=== PATIENT | female | born 1975 | race Caucasian/White ===

== ENCOUNTER 2020-11-22 10:09 | Emergency (ER) | payer OTHER, BC, SELFPAY ==
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
[2020-11-22 10:39] VITALS: BP 128/82; PULSE 69; RESP 14; TEMP 37.2; O2SAT 98
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
[2020-11-22] MEDS: HYDROcodone/acetaminophen (*CRX) 5-325 MG TABLET 1 TAB PO (12:27)
== END 2020-11-22 14:32 | disposition home or self-care (01) ==
PROVIDERS: Emergency Provider Emergency Medicine; PCP Physician Assistant
DX: S16.1XXA Strain of muscle, fascia and tendon at neck level, initial encounter (principal); S39.012A Strain of muscle, fascia and tendon of lower back, initial encounter; M79.661 Pain in right lower leg; M79.662 Pain in left lower leg; I10 Essential (primary) hypertension; E03.9 Hypothyroidism, unspecified; F41.9 Anxiety disorder, unspecified; Z86.73 Personal history of transient ischemic attack (TIA), and cerebral infarction without residual deficits; M43.06 Spondylolysis, lumbar region; V49.40XA Driver injured in collision with unspecified motor vehicles in traffic accident, initial encounter
CPT/HCPCS: 72072; 72100; 72125; 73590; 99284; A9270

== ENCOUNTER 2025-01-05 09:16 | Outpatient (CLI) | payer OTHER, SELFPAY ==
--- OUTSIDE RECORDS SUMMARY | 2025-01-05 09:55 | XMS_ITS | Clinical Summary ---
Author Organization [facility] Address [address] [place] [address] Phone Care Team Providers Care Block Setter Gypsum Name Role Phone Amy Mcduffie Primary Care Provider Allergies No known active allergies Social History Tobacco Use Types Packs/Day Years Used Date Smoking Tobacco: Never Assessed Comments Unknown Sex and Gender Information Value Date Recorded Sex Assigned at Not on file Legal Sex Female 10:10 PM CDT Gender Identity Not on file Sexual Orientation Not on file Plan of Treatment Health Maintenance Due Date Last Done Comments Hepatitis C Virus (HCV) Screening 1973 TdaP Immunization 1973 Hepatitis B Immunization (1 of 3 - 19+ 3-dose series) 1992 Pap Smear 1994 Cervical Cancer Screening (CCS) 10/26/2003 HPV/Cotest 10/26/2003 Cologuard 2018 Colonoscopy 2018 Colorectal Cancer Screening 2018 Immunochemical Fecal Occult Blood 2018 Pneumococcal Immunization (5 0+ years) (1 of 1 - PCV) 10/26/2023 Zoster Immunization (1 of 2) 10/26/2023 Influenza Immunization (#1) 2024 SARS-COV-2 Immunization (3 - 2024- season) 2024 02/27/2021, 11/21/2020 Respiratory Syncytial Virus (RSV) Immunization (Adult) (1 - 1-dose 75+ series) 2048 Human Papillomavirus (HPV) Immunization Aged Out No longer eligible b ased on patient's age to complete this topic Meningococcal Immunization (ACWY) Aged Out No longer eligible b ased on patient's age to complete this topic Rotavirus Immunization Aged Out No lo nger eligible based on patient's age to complete this topic Insurance [facility] Care Teams Block Setter Gypsum Relationship Specialty Start Date End Date Amy Mcduffie PA PCP - General Family Medicine 08/24/17
--- OUTSIDE RECORDS SUMMARY | 2025-01-05 09:55 | XMS_ITS | Clinical Summary ---
Author Organization [facility] Address [address] [place] [address] Care Team Providers Care Regional Owner Operator Truck Driver Name Role Phone Amy Mcduffie Primary Care Pr ovider Allergies No known active allergies Medications levothyroxine (SYNTHROID, LEVOTHROID) 100 mcg tablet Take 100 mcg by mouth aircraft cabin cleaner before breakfast. Active PARoxetine (PAXIL) 30 mg tablet Take 30 mg by mouth every morning. Active amitriptyline (ELAVIL) 10 mg tabletIndicati ons:Migraine Prevention Take one tablet by mouth every evening. 30 tablet 1 8 Active Additional Information Patient not taking.Reported on 11/19/2020 ALPRAZolam (XANAX) 1 mg tablet alprazolam 1 mg tablet TAKE 1 TABLET BY MOUTH THREE TIMES DAILY Active ALPRAZolam (XANAX) 0.5 mg tablet alprazolam 0.5 mg tablet TK 1 T PO BID Active clobetasoL (TEMOVATE) 0.05 % cream clobetasol 0.05 % topical cream APPLY TWICE DAILY TO PSORIASIS UP TO 2 W[address]KS NEEDED Active DUL[address] (CYMBALTA) 60 mg capsule duloxetine 60 mg capsule,delayed release TAKE 1 CAPSULE BY MOUTH EVERY NIGHT AT BEDTIME Active estradioL (ESTRACE) 1 mg tablet estradiol 1 mg tablet TAKE 1 TABLET BY MOUTH EVERY DAY Active pravastatin (PRAVACHOL) 40 mg tablet pravastatin 40 mg tablet TAKE 1 TABLET BY MOUTH EVERY DAY IN THE EVENING Active prazosin (MINIPRESS) 1 mg capsule prazosin 1 mg capsule TAKE 1 CAPSULE BY MOUTH EVERY DAY AT BEDTIME Active triamcinolone (KENALOG) 0.1 % cream triamcinolone acetonide 0.1 % topical cream Active risankizumab-r zaa (SKYRIZI SUBQ) Inject under the skin Active Active Problems Problem Noted Date Diagnosed Date Chronic migraine w/o aura w/ o status migrainosus, not intractable 10/24/2017 Medication overuse headache 10/24/2017 Vasovagal syncope 10/24/2017 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 Surgical History Surgery Date Site/Laterality Comments SECTION Medical History Medical History Date Comments Izaiah's thyroiditis Family History Medical History Relation Name Comments Hypothyroidism Sister Relation Name Status Comments Sister Social History Tobacco Use Types Packs/Day Years Used Date Smoking Tobacco: Former Smokeless Tobacco: Never Personal Safety Answer Date Recorded Getting School Help Needed Not on file 05/18 Comments Unknown Sex and Gender Information Value Date Recorded Sex Assigned at Not on file 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 Gender Identity Not on file Sexual Orientation Not on file Last Filed Vital Signs Vital Sign Reading Time Taken Comments Blood Pressure 116/76 11/27/2023 2:26 PM CDT Pulse 59 11/27/2023 2:26 PM CDT Temperature 37.3 C (99.2 F) 11/19/2020 4:27 PM CDT Respiratory Rate 16 11/19/2020 4:27 PM CDT Oxygen Saturation 98% 11/19/2020 4:27 PM CDT Inhaled Oxygen Concentration - - Weight 70.2 kg (154 lb 11.2 oz) 11/27/2023 2:26 PM CDT Height 156.8 cm (5' 1.75) 11/27/2023 2:26 PM CD T Body Mass Index 28.52 11/27/2023 2:26 PM CDT Plan of Treatment Health Maintenance Due Date Last Done Comments Breast Cancer Screening-Mammogram 1973 Cervical Cancer Screening 1973 Colon Cancer Screening-Colonoscopy 1973 Depression Screening 1973 Hepatitis C Screening 1973 DTaP/Tdap/Td Vaccine (1 - Tdap) 1984 Hepatitis B Screening 10/26/1991 Regular Well Visit/Exam 18-64 10/26/1991 Covid-19 Vaccine (3 - Pfizer risk series) 03/27/2021 02/27/2021, 11/21/2020 Zoster Vaccine (1 of 2) 10/26/2023 Influenza Vaccine (#1) 2024 03/05/2016 Pneumococcal vaccine <65 Aged Out No longer eligible based on patient's age to complete this topic Insurance [facility] [employer] Address: [address] [place] [address] [employer] Address: [address] [place] [address] [facility] CHOICE PLUS [address] [employer] [facility] CHOICE PLUS Care Teams Regional Owner Operator Truck Driver Relationship Specialty Start Date End Date Amy Mcduffie PA PCP - General Physician Kit Assembler 09/28/17
--- OUTSIDE RECORDS SUMMARY | 2025-01-05 09:56 | XMS_ITS | Patient Health Record ---
Author Organization [facility] [employer] Address [address] [place] [address] Care Team Providers Care Band Singer Name Role Phone Amy Membreno Primary Care Provider John Paul Schmidt Unavailable [phone] Allergies No Known Allergies Reason For Referral No Information Medications Medication SIG (Take, Route, Frequency, Duration) Notes Start Date End Date Status ALPRAZolam 1 MG Tablet Oral By pcp 04/13/2023 Active levoFLOXacin 500 MG Tablet Oral 04/13/2023 Active buPROPion HCl ER (XL) 150 MG Tablet Extended Release 24 Hour TAKE 1 TABLET BY MOUTH ONCE DAILY IN THE MORNING; Duration: 90 Active Estradiol 2 MG Tablet 1 tablet Orally On 04/13/2023 Active DULoxetine HCl 30 MG Capsule Delayed Release Particles Take 1 capsule by mouth once daily at bedtime; Duration: 90 Active Immunizations Vaccine Route Administration Date Status Comme nts Pfizer [employer]ion[employer] Covid-19 Vac cine 2nd dose Unknown 11/21/2020 Administered Pfizer [employer]iontech Covid-19 Vac cine 2nd dose Unknown 02/27/2021 Administered Social History Tobacco Use: Social History Observation Description Date Details (start date - stop date) Former Smoker NA - NA Sex Assigned At : Social History Observation Description Sex Assigned At Female Social History Miscellaneous: Social Info Question Answer Notes Advance Care Planning Are you your own decision-maker Yes Do you have Power of Electric Crane Operator for Health or Medi roxie? Yes Do you have a power of corporate logistics manager for health? No Do you have power of corporate logistics manager for Medical ? No Tobacco Use: Social Info Question Answer Notes Tobacco Control (Standard) Tobacco use: Former smoker Additional Details Category Social Info Options Details Migrated Social History Migrated Social History Alcohol Intake: None 02/09/2020,Tobacco Years: Former smoker 04/20/2021,Smoking Status: 21 04/13/2023 Problems Problem Type SNOMED Code ICD Code Onset Dates Problem Status W/U Status Risk Notes Problem Severe recurrent major depression without psychotic features (83126559) Major depressive disorder, recurrent severe without psychotic features (F33.2) Active confirmed Problem Generalized anxiety disorder (09522921) Generalized anxiety disorder (F41.1) Active confirmed Problem Posttraumatic stress disorder (80443481) Post-traumatic stress disorder, chronic (F43.12) Active confirmed Problem 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 (790119482) 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 (E06.3) 10/25/19 18 Active confirmed Problem Vasovagal syncope (602821614) Vasovagal syncope (R55) 10/25/19 18 Active confirmed Problem Chronic migraine without aura, non-intractable (218670354616862) Chronic migraine w/o aura w/o status migrainosus, not intractable (G43.709) 10/25/19 18 Active confirmed Problem Medication overuse headache (504376691) Medication overuse headache (G44.40) 10/25/19 18 Active confirmed Vital Signs Heart Rate 78 /min 06/25/2024 Height-cm 154.94 cm 06/25/2024 Blood pressure diastolic 71 mm Hg 06/25/2024 Weight-kg 69.4 kg 06/25/2024 Height 61.00 in 06/25/2024 Blood pressure systolic 107 mm Hg 06/25/2024 Weight 153 lbs 06/25/2024 BMI 28.91 kg/m2 06/25/2024 Encounters Encounter Location Date Provider Diagnosis [facility] [employer] [address] [place] [address] 03/26/2024 John Paul Ness Major depressive disorder, recurrent severe without psychotic features F33.2 ; Generalized anxiety disorder F41.1 and Post-traumatic stress disorder, chronic F43.12 [facility] [employer] [facility] [address] [place] [address] 06/25/2024 John Paul Ness Encounter for screen ing for depression Z13.31 ; Encounter for screening for cardiovascular disorders Z13.6 ; Major depressive disorder, recurrent severe without psychotic features F33.2 ; Generalized anxiety disorder F41.1 and Post-traumatic stress disorder, chronic F43.12 [facility] [employer] [facility] [address] [facility] [address] [place] [address] 07/03/2024 John Paul Ness Major depressive disorder, recurrent severe without psychotic features F33.2 Assessments Encounter Date Diagnosis (ICD Code) Assessment Notes Treatment Notes Treatment Clinical Notes Section Notes 06/25/2024 Encounter for screening for depression (ICD-10 - Z13.31) 07/03/2024 Major depressive disorder, recurrent severe without psychotic features (ICD-10 - F33.2) 03/26/2024 Major depressive disorder, recurrent severe without psychotic features (ICD-10 - F33.2) 03/26/2024 Generalized anxiety disorder (ICD-10 - F41.1) 06/25/2024 Encounter for screening for cardiovascular disorders (ICD-10 - Z13.6) 03/26/2024 Post-traumatic stress disorder, chronic (ICD-10 - F43.12) 06/25/2024 Major depressive disorder, recurrent severe without psychotic features (ICD-10 - F33.2) 06/25/2024 Generalized anxiety disorder (ICD-10 - F41.1) 06/25/2024 Post-traumatic stress disorder, chronic (ICD-10 - F43.12) 03/26/2024 Other Major Depressive Disorder - Assessment: Patient reports significant emotional distress from a toxic work environment, leading to crying every night. They have quit their job and have an upcoming interview for a new position. Patient expresses desire to wean off medications, including bupropion, duloxetine, and Xanax, and has already weaned off one medication. Despite a high depression score today, patient notes improvement over the last week since deciding to leave their job. - Plan: - Decrease duloxetine to 30 mg. If depression worsens, return to 60 mg. - Obtain a 90-day prescription while patient still has insurance coverage. - Schedule follow-up appointment in two months to reassess mental health and medication needs. Anxiety - Assessment: Patient is currently weaning off Xanax and has experienced hot flashes at night. They previously quit cold turkey and had a breakdown, so they are now attempting a more gradual approach. - Plan: - Continue gradual weaning process for Xanax. - Monitor for signs of withdrawal or worsening anxiety. - Encourage patient to call immediately if anxiety worsens or if they experience adverse effects from medication changes. Unemployment and Insurance Concerns - Assessment: Patient has quit their job and is concerned about losing insurance coverage. They have been actively seeking employment for about a month and have faced challenges due to being overqualified. They have an interview for a new position. - Plan: - Assist patient in obtaining 90-day prescription for medications while still insured. - Encourage patient to explore options for insurance coverage during job transition. - Provide resources and support as needed. Follow-up Appointment - Plan: - Ensure appointment is scheduled in two months. - Confirm appointment with patient closer to the date. - Encourage patient to call immediately if depression or anxiety worsens or if they experience adverse effects from medication changes. 06/25/2024 Other Problem-Based Assessment and Plan Radha Frank, a patient with a history of depression and anxiety, reports significant improvement in mood and overall well-being, expressing a desire to discontinue psychotropic medications. Depression Assessment: Patient reports significant improvement in depressive symptoms. She denies current suicidal thoughts and states she no longer dwells on negative thoughts. Improvement is attributed to better job situation and family relationships, including reconciliation with her daughter. Patient expresses desire to discontinue all psychotropic medications, believing she no longer needs them. Plan: - Discontinue duloxetine 30 mg - Continue bupropion 150 mg - Gradual taper of medications planned - Follow-up in 3 months to reassess mood and medication needs - If stable at follow-up, consider further medication reduction or discontinuation - Monitor for return of depressive symptoms during taper Anxiety Assessment: Patient reports improved anxiety symptoms and has been self-tapering alprazolam (Xanax) use. Previously prescribed 3 times daily, patient reduced to twice daily, and now reports taking it once daily. Expresses desire to discontinue alprazolam completely. Plan: - Continue alprazolam taper as tolerated - Discontinue buspirone (BuSpar) - Monitor for return of anxiety symptoms during medication taper Disclaimer: This note has been transcribed using speech recognition software and serves as a reflection of the patient's visit. While efforts have been made to ensure accuracy, there may be errors, including library acquisitions technician inaccuracies and misspellings of medication names. This document should not be considered a verbatim record, and any discrepancies should be verified with the provider. Plan Of Treatment Next Appt Details Provider Name:John Paul Ness , 01/16/2025 04:30:00 PM, [address] [facility] [address] [facility] [address], [place], [address], Insurance Providers Payer Name Payer Address Payer Phone Subscriber Number Group Number Insured Name Patient Relationship to Insured Coverage Start Date Coverage End Date [facility] [address] [place] [address] [id number] RADHA SULLIVAN Self - patient is the insured 4 [facility] [address] [address] [place] [address] [id number] RADHA SULLIVAN Self - patient is the insured 5 Medical (General) History Medical History History ICD Code Problems: Chronic post-traumatic stress disorder Generalized anxiety disorder Severe recurrent major depression withou t psychotic features , Surgical History Surgery Date(Month/Year) Hysterectomy (18045) Any surgical history Hysterectomy/bladder repair (71662) section (40985534) Other 02/03/2020
[2025-01-05 10:06] LABS: Hematocrit 40.9 % (37.0-47.0); Hemoglobin 13.2 g/dL (12.0-15.0); Immature Granulocyte Percent A 0.4 % (0-0.5); Lymphocytes Absolute Auto 1.76 K/mm3 (0.9-3.2); Mean Corpuscular HGB Conc 32.3 g/dl (32-36); Mean Corpuscular Hemoglobin 30.6 pg (26-34); Mean Corpuscular Volume 94.9 fl (80-100); Nucleated Red Blood Cells Absolute Auto 0.000 K/mm3 (0.0-0.012); Nucleated Red Blood Cells Perc 0.0 % (0.0-0.2); Platelet Count Result 311 k/mm3 (150-375); Red Blood Count 4.31 M/mm3 (4.2-5.4); White Blood Count 5.3 K/mm3 (4.5-10.0)
[2025-01-05 10:27] LABS: Alanine Aminotransferase 24 U/L (6-35); Albumin Level 4.1 g/dL (3.5-5.1); Alkaline Phosphatase 48 U/L (38-126); Anion Gap 7 mmol/L (4-12); Aspartate Amino Transferase 27 U/L (14-36); Bilirubin,Total 0.3 mg/dL (0.2-1.3); Blood Urea Nitrogen 21 mg/dL (7-17); Calcium 8.9 mg/dL (8.4-10.2); Carbon Dioxide 28 mmol/L (22-30); Chloride 103 mmol/L (98-107); Cholesterol 194 mg/dL (0-200); Estimated Glomerular Filt Rate > 60; Glucose 103 mg/dL (65-110); HDL Direct 71 mg/dL; Potassium 4.6 mmol/L (3.4-5.0); Sodium 138 mmol/L (137-145); Total Protein 7.2 g/dL (6.3-8.2); Triglycerides 76 mg/dL (<150)
[2025-01-05 10:30] LABS: Hemoglobin A1C 5.4 % (<5.7)
[2025-01-05 10:41] LABS: Free T4 Free Thyroxine 1.28 ng/dL (0.78-2.19)
[2025-01-05 11:02] LABS: Thyroid Stimulating Hormone < 0.015 uIU/mL (0.465-4.680)
== END 2025-01-05 09:17 | disposition home or self-care (01) ==
LOC: ANHLAB 09:19
PROVIDERS: PCP Physician Assistant; Visit Provider Physician Assistant
DX: E03.9 Hypothyroidism, unspecified (principal); Z13.220 Encounter for screening for lipoid disorders; Z13.1 Encounter for screening for diabetes mellitus; Z79.899 Other long term (current) drug therapy
CPT/HCPCS: 36415; 80053; 80061; 83036; 84439; 84443; 85025

== ENCOUNTER 2025-01-22 11:19 | Outpatient (CLI) | payer OTHER, SELFPAY ==
--- NOTE | ~2025-01-22 | MM_ITS ---
EXAMINATION: MM screening areli BI w zahra HISTORY: Screening TECHNIQUE: Craniocaudal and mediolateral oblique 3-D tomosynthesis images were obtained and synthetic 2-D images were generated. CAD analysis was submitted and interpreted. COMPARISON: Comparison to multiple prior studies sequentially, with oldest reviewed study dated , 05/25/2009 BREAST PARENCHYMAL COMPOSITION: Not Dense: The breasts are almost entirely fatty. FINDINGS: There is no evidence of suspicious mass, calcification, or architectural distortion to suggest malignancy in either breast. IMPRESSION: 1. No mammographic evidence of malignancy. 2. Recommend routine screening mammography in one year. BI-RADS Category 1: Negative Reviewed, dictated and finalized at location B. OLL AND BENEFITS MANAGER
== END 2025-01-22 11:20 | disposition home or self-care (01) ==
PROVIDERS: PCP Physician Assistant; Visit Provider Obstetrics & Gynecology
DX: Z12.31 Encounter for screening mammogram for malignant neoplasm of breast (principal)
CPT/HCPCS: 77063; 77067

== ENCOUNTER 2025-02-24 11:46 | Outpatient (CLI) | payer OTHER, SELFPAY ==
--- OUTSIDE RECORDS SUMMARY | 2025-01-16 10:30 | XMS_ITS ---
Author Organization [facility] Screen Address [facility] [facility] [address] [place] [address] Care Team Providers Care Collar Stay Fuser Tender Name Role Phone Amy Membreno Primary Care Provider John Paul Schmidt Unavailable [phone] REASON FOR VISIT Last seen 06/25/2024 Social History Sex Assigned At : Social History Observation Description Sex Assigned At Female Encounters Encounter Location Date Provider Diagnosis [facility] [place] [address] [facility] [address] [place] [address] 01/16/2025 John Paul Schulte Plan Of Treatment No Information Progress Notes * RADHA DIAZDOB:1975 (49 yo F)Acc No.[id number]:01/16/2025 Patient: Stanislaw ANUPAM RADHA Provider: Eladia SCHULTE MD :1975 A ge:49 Y S ex:Female Date:01/16/2025 [facility] [facility] Pcp:Amy FONSECA Subjective: * Chief Complaints: * L ast seen 06/25/2024 * Active Problem List E06.3 Hypothyroidism due t o Izaiah's thyroiditis Onset Date:10/24/2017Modified On:12/26/2023W/U Status:confirmedClinical Status:active R55 Vasovagal syncope Onset Date:10/24/2017Modified On:12/26/2023W/U Status:confirmedClinical Status:active G43.709 Chronic migraine w/o aura w/o status migrainosus, not intractable Onset Date:10/24/2017Modified On:12/26/2023 Status:confirmedClinical Status:active G44.40 Medication overuse h eadache Onset Date:10/24/2017Modified On:12/26/2023 Status:confirmedClinical Status:active 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
--- OUTSIDE RECORDS SUMMARY | 2025-02-24 12:03 | XMS_ITS | Patient Health Record ---
Author Organization [facility] Address [address] [place] [address] Care Team Providers Care Hydrometer Tester Name Role Phone Amy Membreno Primary Care Provider John Paul Schmidt Unavailable [phone] Allergies No Known Allergies Reason For Referral [...] decision-maker Yes Do you have Power of Tennis Court Attendant for Health or Medi roxie? Yes Do you have a power of employment law attorney for health? No Do you have power of employment law attorney for Medical ? 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 (E06.3) 10/25/19 18 Active confirmed Problem Vasovagal syncope (409916222) Vasovagal syncope (R55) 10/25/19 18 Active confirmed Problem Chronic migraine without aura, non-intractable (544816946472048) Chronic migraine w/o aura w/o status migrainosus, not intractable (G43.709) 10/25/19 18 Active confirmed Problem Medication overuse headache (117836556) Medication overuse headache (G44.40) 10/25/19 18 Active confirmed Vital Signs Heart Rate 78 /min 06/25/2024 Height-cm 154.94 cm 06/25/2024 Blood pressure diastolic 71 mm Hg 06/25/2024 Weight-kg 69.4 kg 06/25/2024 Height 61.00 in 06/25/2024 Blood pressure systolic 107 mm Hg 06/25/2024 Weight 153 lbs 06/25/2024 BMI 28.91 kg/m2 06/25/2024 Encounters Encounter Location Date Provider Diagnosis [facility] [employer] [address] [place] [address] 03/26/2024 John Paul Ness Major depressive disorder, recurrent severe without psychotic features F33.2 ; Generalized anxiety disorder F41.1 and Post-traumatic stress disorder, chronic F43.12 [facility] [employer] [facility] [address] [place] [address] 06/25/2024 John Paul Ness Encounter for screen ing for depression Z13.31 ; Encounter for screening for cardiovascular disorders Z13.6 ; Major depressive disorder, recurrent severe without psychotic features F33.2 ; Generalized anxiety disorder F41.1 and Post-traumatic stress disorder, chronic F43.12 [facility] [employer] [facility] [address] [facility] [address] [place] [address] 07/03/2024 John Paul Ness Major depressive disorder, [...] ensure accuracy, there may be errors, including photostatic copy maker inaccuracies and misspellings of medication names. This document should not be considered a verbatim record, and any discrepancies should be verified with the provider. Plan Of Treatment No Information Insurance Providers Payer Name Payer Address Payer Phone Subscriber Number Group Number Insured Name Patient Relationship to Insured Coverage Start Date Coverage End Date [facility] [address] [place] [phone] [id number] RADHA SULLIVAN Self - patient is the insured 4 [facility] [address] [address] [place] [address] [id number] RADHA SULLIVAN Self - patient is the insured 5 Medical (General) History Medical History History ICD Code Problems: Chronic post-traumatic stress disorder Generalized anxiety disorder Severe recurrent major depression withou t psychotic features , Surgical History Surgery Date(Month/Year) Hysterectomy (23143) Any surgical history Hysterectomy/bladder repair (31571) section (46345449) Other 02/03/2020
--- OUTSIDE RECORDS SUMMARY | 2025-02-24 12:03 | XMS_ITS | Clinical Summary ---
Author Organization [facility] Address [address] [place] [address] Care Team Providers Care Radio/Tv Technician Name Role Phone Amy Mcduffie Primary Care Pr ovider Allergies No known active allergies Medications levothyroxine (SYNTHROID, LEVOTHROID) 100 mcg tablet Take 100 mcg by mouth clinic cma before breakfast. 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 Gender Identity Not on file Sexual Orientation [...] patient's age to complete this topic Insurance [facility] ACCESS Member Subscriber Plan / Payer (Ef fective 2017-Present) Name:Shavon Frank Relation to Subscriber:Self Name:Shavon Frank Payer ID:[id number] (NAIC) Group ID:[id number] Type:[employer] Address: [address] [place] [address] [employer] [facility] CHOICE PLUS [address] [facility] CHOICE PLUS Care Teams Radio/Tv Technician Relationship Specialty Start Date End Date Amy Mcduffie PA PCP - General Physician Drafter (Cad) Electronic 09/28/17
--- OUTSIDE RECORDS SUMMARY | 2025-02-24 12:03 | XMS_ITS | Data Portability ---
Author Organization [facility] [employer], Main Office Address [address] [place] [address] Assessment No assessment recorded. Plan of Treatment Reminders Order Date Submit Date Provider Last Modified By Organization Details Last Modified Time Details Appointments None recorded . Lab TSH + free T4, serum 023 10/21/19 23 [email or web address] [employer] [facility], [address], [place], [address], 4 09:34:52 CBC w/ auto diff 023 10/21/19 23 [email or web address] [facility], [address], [place], [address], 4 09:34:51 CMP, serum or plasma 023 10/21/19 23 [email or web address], [address], [place], [address], 4 09:34:52 lipid panel, serum 023 10/21/19 23 [email or web address] [employer] [facility], [address], [place], [address], 4 09:34:51 Referral None recorded . Procedures None recorded . Surgeries None recorded . Imaging None recorded . Medication Orders None recorded . Patient TargetsNo targets recorded. Patient InstructionsNo instructions recorded. Reason for Referral None Reported. Results Created Date Observation Date Name Description Value Unit Range Abnormal Flag Note LastModifiedBy Organization Detail LastModifiedTime 10/12/19 21 09/15/2020 MAMMO , scree sarah, digit al, bilat eral No observ ation record ed. [id number] [facility] [address], [place], [address], 05/03/2022 03:05:03 12/09/19 21 11/22/2020 CT, cervi roxie spine , w/o contr ast No observ ation record ed. [id number] [facility] (Imaging) [address], [place], [address], 05/03/2022 03:05:03 Result Notes None recorded. 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 Procedures Surgical History Date Name Laterality Status Provider Name and Address Organization Details Recorded Time 02/22/20 19 Hysterectomy completed Not Available [facility] 023 02:44:04 02/22/20 19 repair of urinary stress incontinence completed Not Available [facility] 05/03/2022 02:44:04 03/05/19 16 other completed Not Available [facility] 3 02:44:04 03/05/19 03 section completed Not Available [facility] 03/2022 02:44:04 03/05/18 94 section completed Not Available [facility] 03/2022 02:44:04 Imaging Results None recorded. Procedure Notes None recorded. Medical Equipment None Reported. Allergies Allergen ID Allergen Name Allergen Category Reaction Reaction Severity Criticality Documentation Date Start Date Code Code System Note Provider Name and Address Organization Details Recorded Time 4902 rosuvasta tin medicatio n itching Not available Not available 05/03/2022 93283 2 RxNorm Not Available [facility] 3 03:04:13 Medications Name Sig Start Date Stop Date Status Note LastModified by Organization Details LastModified Time cyclobenzap rine 10 mg tablet TAKE 1 TABLET BY MOUTH AT BEDTIME NEEDED FOR PAIN 05/13 completed Not Available Not Available Not Available amoxicillin 500 mg capsule TK TWO CS PO D 07/03 completed Not Available Not Available Not Available buspirone 5 mg tablet TAKE 1 TABLET BY MOUTH THREE TIMES DAILY active Not Available Not Available No t Available paroxetine 10 mg tablet 08/23 completed Not Available Not Available Not Available pravastatin 40 mg tablet TAKE 1 TABLET BY MOUTH EVERY DAY IN THE EVENING 10/20 completed Not Available Not Available Not Available alprazolam 1 mg tablet TAKE 1 TABLET BY MOUTH THREE TIMES DAILY NEEDED active Not Available Not Available No t Available hydrocodone 5 mg-acetamin ophen 325 mg tablet TAKE 1 TABLET BY MOUTH EVERY 4 HOURS NEEDED 10/19 completed Not Available Not Available Not Available prazosin 1 mg capsule TAKE 1 CAPSULE BY MOUTH EVERY DAY AT BEDTIME 10/20 completed Not Available Not Available Not Available fluconazole 200 mg tablet TAKE 1 TABLET BY MOUTH 1 TIME A WEEK 05/12 completed Not Available Not Available Not Available meloxicam 15 mg tablet TAKE 1 TABLET BY MOUTH ONCE DAILY NEEDED 11/25 completed Not Available Not Available Not Available clobetasol 0.05 % topical cream APPLY TWICE DAILY TO PSORIASIS UP TO 2 WEEKS NEEDED active Not Available Not Available No t Available triamcinolo ne acetonide 0.1 % topical cream 10/20 completed Not Available Not Available Not Available levothyroxi ne 100 mcg tablet TAKE 1 TABLET BY MOUTH ONCE DAILY IN THE MORNING active Not Available Not Available No t Available oxycodone-a cetaminophe n 5 mg-325 mg tablet 05/13 completed Not Available Not Available Not Available alprazolam 0.5 mg tablet TK 1 T PO BID active Not Available Not Available No t Available alprazolam 0.25 mg tablet TAKE 1 TABLET BY MOUTH TWICE DAILY NEEDED 05/13 completed Not Available Not Available Not Available estradiol 1 mg tablet TAKE 1 TABLET BY MOUTH EVERY DAY active Not Available Not Available No t Available oxycodone-a cetaminophe n 10 mg-325 mg tablet 05/13 completed Not Available Not Available Not Available amitriptyli ne 10 mg tablet Take 1 tablet every day by oral route. 11/25 completed Not Available Not Available Not Available paroxetine 30 mg tablet TAKE 1 TABLET BY MOUTH EVERY DAY IN THE MORNING 10/20 completed Not Available Not Available Not Available paroxetine 20 mg tablet Take 1 tablet every day by oral route. 07/04 completed Not Available Not Available Not Available triamcinolo ne acetonide 0.1 % topical ointment APPLY THIN LAYER EXTERNALL Y TO THE AFFECTED AREA TWICE DAILY 05/12 completed Not Available Not Available Not Available pravastatin 20 mg tablet TAKE 1 TABLET BY MOUTH ONCE DAILY IN THE EVENING active Not Available Not Available No t Available levofloxaci n 500 mg tablet TAKE 1 TABLET BY MOUTH DAILY FOR 7 DAYS 10/20 completed Not Available Not Available Not Available paroxetine 40 mg tablet TAKE 1 TABLET BY MOUTH EVERY DAY 05/12 completed Not Available Not Available Not Available naproxen 500 mg tablet TAKE 1 TABLET BY MOUTH TWICE DAILY NEEDED FOR PAIN 05/13 completed Not Available Not Available Not Available escitalopra m 10 mg tablet TAKE 1/2 (ONE-HALF ) TABLET BY MOUTH ONCE DAILY IN THE MORNING FOR 7 DAYS; THEN TAKE 1 TABLET ONCE DAILY IN THE MORNING active Not Available Not Available No t Available rosuvastati n 10 mg tablet Take 1 tablet every day by oral route in the evening. 05/13 completed Not Available Not Available Not Available nitrofurant oin monohydrate /macrocryst als 100 mg capsule TAKE 1 CAPSULE BY MOUTH TWICE DAILY FOR 5 DAYS 10/19 completed Not Available Not Available Not Available duloxetine 30 mg capsule,del ayed release TAKE 1 CAPSULE BY MOUTH ONCE DAILY FOR 7 DAYS 10/20 completed Not Available Not Available Not Available duloxetine 60 mg capsule,del ayed release TAKE 1 CAPSULE BY MOUTH ONCE DAILY active Not Available Not Available No t Available multivitami n Takes daily 10/20 completed Not Available Not Available Not Available Cimzia 400 mg/2 mL (200 mg/mL x 2) subcutaneou s syringe kit 10/20 completed Not Available Not Available Not Available Sudafed PE Sinus-Aller gy Takes one daily in the morning 10/20 completed Not Available Not Available Not Available vilazodone 40 mg tablet TAKE 1 TABLET BY MOUTH EVERY DAY IN THE EVENING 10/20 completed Not Available Not Available Not Available Vitals Date Recorded Body mass index (BMI) Body height Oxygen saturation Heart rate Respiratory rate Body temperature Body weight Systolic And Diastolic Provider Name and Address Organization Details Last Updated DateTime 1 28 kg/m2 156.21 cm 98 % 81 /min 16 /min 98.1 [degF] 94802.0 1 g 120/80 mm[Hg] Not Available [facility] 3 02:48:17 Date Recorded Body mass index (BMI) Body height Oxygen saturation Heart rate Respiratory rate Body temperature Body weight Systolic And Diastolic Provider Name and Address Organization Details Last Updated DateTime 2 29.4 kg/m2 156.21 cm 98 % 78 /min 16 /min 98 [degF] 89407.5 9 g 118/76 mm[Hg] Not Available [facility] 3 02:48:17 Date Recorded Body height Body temperature Body mass index (BMI) Body weight Respiratory rate Oxygen saturation Heart rate Systolic And Diastolic Provider Name and Address Organization Details Last Updated DateTime 3 156.21 cm 97.2 [degF] 29.9 kg/m2 25664.3 7 g 16 /min 97 % 80 /min 122/80 mm[Hg] LUIS A Irvin [place] [facility] 3 15:14:17 Social History Question Answer Notes LastModified by Organizat ion Details LastModified Time Tobacco Smoking Status Current Every Day Smoker Not Available [facility] 05/03/2022 02:40:00 What Is Your Level Of Caffeine Consumption? Moderate [id number] Information not available 05/03/2022 How Much Tobacco Do You Chew? None [id number].[id number] Information not available 05/03/2022 In The 14 Days Before Symptom Onset, Have You Had Close Contact With A Laboratory-confirm ed COVID-19 While That Case Was Ill? No MIGRATION.[id number] Information not available 05/03/2022 In The 14 Days Before Symptom Onset, Have You Had Close Contact With A Person Who Is Under Investigation For COVID-19 While That Person Was Ill? No MIGRATION.[id number] 5608 Information not available 05/03/2022 What Type Of Diet Are You Following? REGULAR [id number].[id number] Information not available 05/03/2022 Which Illicit Or Recreational Drugs Have You Used? None MIGRATION.140574 8690 Information not available 05/03/2022 Have There Been Any Changes To Your Family Or Social Situation? No MIGRATION.[id number] 6899 Information not available 05/03/2022 Are There Any Guns Present In Your Home? Yes MIGRATION.232817 2568 Information not available 05/03/2022 Do You Use Insect Repellent Routinely? No MIGRATION.502798 9524 Information not available 05/03/2022 What Is Your Relationship Status? MIGRATION.059711 7701 Information not available 05/03/2022 Do You Use Your Seat Belt Or Car Seat Routinely? Yes MIGRATION.620720 7047 Information not available 05/03/2022 Do You Have Smoke And Carbon Monoxide Detectors In Your Home? Yes MIGRATION.324921 8104 Information not available 05/03/2022 At What Age Did You Start Smoking Tobacco? 13 MIGRATION.482566 4184 Information not available 05/03/2022 How Much Tobacco Do You Smoke? 0.25 PPD MIGRATION.237258 8232 Information not available 05/03/2022 Do You Use Sunscreen Routinely? Yes MIGRATION.218706 5428 Information not available 05/03/2022 Have You Recently Traveled Abroad? No MIGRATION.862218 6347 Information not available 05/03/2022 Do You Have Any Dietary Restrictions? No MIGRATION.088211 1750 Information not available 05/03/2022 Sex: Unknown Functional Status Question Answer Note LastModified by Organizat ion Details LastModified Time Do you use any illicit or recreational drugs? No MIGRATION.942487 0335 Information not available 05/03/2022 Do you or have you ever used any other forms of tobacco or nicotine? No MIGRATION.998643 2168 Information not available 05/03/2022 What is your level of alcohol consumption? None MIGRATION.038516 1118 Information not available 05/03/2022 Do you or have you ever used smokeless tobacco? Never used smokeless tobacco MIGRATION.242418 8138 Information not available 05/03/2022 Are you currently employed? 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 Never used electronic cigarettes MIGRATION.782693 7980 Information not available 05/03/2022 What is your exercise level? None MIGRATION.878189 2692 Information not available 05/03/2022 Mental Status None recorded. Family History Relationship Description Onset Age of this Age Resolved Age Notes LastModified by Organization Details LastModified Time Mother Obese [id number] Not available 05/03/2022 02:44:11 Son Autistic disorder [id number] Not available 05/03/2022 02:44:11 Medical History Condition Response NERVE DISEASE N BLINDNESS N RHEUMATIC FEVER N KIDNEY STONES N BLADDER PROBLEMS N OTHER # 1 N POLIO N LUNG DISEASE/DISORDER N RADIATION / CHEMOTHERAPY N COPD N Other # 2 N BLOOD DISEASES N SURGERY N EAR OR HEARING PROBLEMS N MUMPS N BOWEL PROBLEMS N DEPRESSION (INCLUDING POST ) Y STROKE/TIA Y ULCERS N BENIGN PROSTATIC HYPERPLASIA N MEASLES N MYOCARDIAL INFARCTION N OBESITY N GERD/NAUSEA N ANEURYSM N URINARY/BLADDER/KIDNEY PROBLEMS N INPATIENT PSYCH CARE N CORONARY ARTERY DISEASE (CAD) N ADDICTION CONCERNS N Impotence N ENDOMETRIOSIS N USE OF BLOOD THINNERS N SKIN PROBLEMS N GASTROINTESTINAL DISORDER N PERIPHERAL VASCULAR DISEASE N MUSCLE,JOINT OR BONE PROBLEMS N GASTROINTESTINAL BLEEDING N BLOOD CLOTS N ASTHMA Y CATARACTS N ERECTILE DYSFUNCTION N VARICOSITIES N GI PROBLEMS N Low Testosterone N INFERTILITY N AIDS/HIV N LIVER DISEASE N MALE HYPOGONADISM N HYPERTENSION N Deficiency N ANXIETY DISORDER Y BLOOD TRANSFUSION N ANEMIA/BLOOD DISORDER N CHRONIC EAR INFECTIONS N BRONCHITIS N TUBERCULOSIS N GLAUCOMA N FOOT PROBLEM N DIVERTICULITIS N SLEEP APNEA N CHICKENPOX N INFECTIOUS DISEASE N PROSTATE N HEART ARRHYTHMIA N INSOMNIA N HIGH CHOLESTEROL / HYPERLIPIDEMIA N EYE PROBLEMS Y HYPERTHYROIDISM N NEUROLOGICAL PROBLEMS N EDEMA N CHRONIC PAIN SYNDROME N HYPOTHYROIDISM N CONSTIPATION N CAROTID BLOCKAGE N BACK / NECK PROBLEMS Y HAVE YOU BEEN HOSPITALIZED OR SEEN IN [facility] IN THE PAST YEAR ? N ATHEROSCLEROSIS N BREAST PROBLEMS N DIALYSIS N ECZEMA N OSTEOPOROSIS N ARTHRITIS N NO SIGNIFICANT PAST MEDICAL HISTORY N APPENDICITIS N DIABETES, TYPE N BAD TEETH N ENT N HEARTBURN / REFLUX N AUTISM SPECTRUM DISORDER (ASD) N HEPATITIS / LIVER DISEASE N PULMONARY DISEASE N GOUT N SLEEP DISORDER N ALZHEIMER'S DISEASE N Brain Problems N DEMENTIA N HERPES N SEIZURES/EPILEPSY N HEADACHES/MIGRAINES Y VASCULAR DISEASE N PACEMAKER N Blood Disorder N DIZZINESS N HEART DISEASE/HEART PROBLEMS N KIDNEY DISEASE N MULTIPLE SCLEROSIS N CANCER: SPECIFY N CARDIAC ARRHYTHMIA N ANESTHESIA COMPLICATIONS N ATRIAL FIBRILLATION N Gall Stones N PULMONARY EMBOLISM N AUTOIMMUNE DISEASE N Gynecological History Statement/Question Response Menses Monthly N How many live births 3 Abnormal Pap Y Date of Last Pap 02/02/2019 Date of Last Mammogram 04/02/2019 Current Control Method Hysterectom y Sexually Active? N Obstetrics History GPAL:G 3 P 0 0 0 3 Type Value Living 3 Total 3 Immunizations Vaccine Type Date Status Note Provider Nam e and Address Organization Details Recorded Time Influenza, split virus, quadrivalent, preservative 7 completed Not Available [facility] 05/03/2022 03:03:59 Past Encounters Encounter ID Performer Location Encounter Start Date Encounter Closed Date Diagnosis/Indication Diagnosis SNOMED-CT Code Diagnosis ICD10 Code Diagnosis IMO Codes Diagnosis Note [id number] RAYMUNDO Carrion [facility] [place] [address] [place] [address] 05/17/2020 00:00:00 05/31/2020 23:38:10 [id number] Guillermo Boyd MD [facility] Internal [facility] [place] [address] [place] [address] 08/23/2021 00:00:00 08/31/2021 01:10:35 [id number] RAYMUNDO Carrion [facility] Internal [facility] [place] [address] [place] [address] 10/20/2022 15:06:28 10/20/2022 15:58:20 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 pt has declined medication prior. Mixed anxi ety and depressive disorder 080761107 F41.8 pt is on lexapro 10mg daily and buspar 5mg tid from specialist . Long-term drug therapy 797139985 Z79.899 CBC and CMP due Health Concerns Section Related Observation LastModified by Organization Detai ls LastModified Time None Recorded Concern Status LastModified by Organization Details LastModified Time None Recorded Advance Directives Directive None Recorded Payers Insurance Date Sequence Insurance Name Policy Number Policy Henao Covered Member ID Henao Member ID Guarantor Name 10/20/2022 1 *SELF PAY* Ke lly Arlyn Monika 10/20/2022 1 [place] [id number]ams Monika [id number] Shavon Stoddard Monika 10/20/2022 1 [facility] [id number] Guillermo Monika [id number] Shavon Arlyn Frank Notes Date Note Type Note Provider Name and Address Organization Details Recorded Time 10/21/19 23 text/htm l Anxiety/DepressionReported by PatientHPIFor severity, patient reportsinterference with household activitiesandinterference with workbut reportsdenies suicidal ideations,able to maintain relationships, anddoes not interfere with activities of daily living. For context, patient reportsmajor life stressorsandtrouble at work. For duration, patient reportssymptoms lasting over 2 weeks. For onset/timing, patient reportsstill present. For associated symptoms, patient reportsdenies homicidal ideations,no significant weight gain,no significant weight loss,no visual/auditory hallucinations,no delusions, andno shortness of breath. For quality, (doesnt matter time of day.). HyperlipidemiaReported by PatientHPIFor duration, patient reportschronic. For compliance, patient reportsdoes not exercisebut reportscompliantandcompliant with diet. For control, patient reportsusually well controlled. For complications, patient reportsno coronary artery disease,no peripheral artery disease, andno cardiovascular disease. HypothyroidismReported by PatientHPIFor exercise, patient reportsno exercise. For quality, patient reportsnot changing. For duration, patient reportsconstant. For onset/timing, patient reportsstill present. For context/risk, patient reportsnormal thyroid levels,no history of head or neck radiation during childhood,no history of thyroid disease,no history of hypothyroidism,no history of hyperthyroidism, andno excess iron exposure. For modifying factors, patient reportsmedication. For associated symptoms, patient reportsno cold intolerance,no heat intolerance,no weight loss,no weight gain,no double vision,no dry eyes,no hoarseness,no difficulty swallowing,no neck masses,no deepening of the voice,no fast heart rate,no increased blood pressure,no palpitations,no chest pain,no chest tightess or pressure,no constipation,no diarrhea,no vomiting,no decreased appetite,no loose stools,no irregular menstrual periods,no excessive sweating,no joint pain,no numbness,no tingling of the hands or feet,no dry skin,no tremor,no nervousness,no anxiety,no depression,no fatigue,no sleep difficulties,no skin changes, andno hair changes. RAYMUNDO Carrion [address] [place] [address] [address], [place], [address], [place] [facility] 11/02/2022 17:38:36 OBGyn Episode No OBEpisode recorded.
--- OUTSIDE RECORDS SUMMARY | 2025-02-24 12:03 | XMS_ITS | Clinical Summary ---
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
--- OUTSIDE RECORDS SUMMARY | 2025-02-24 12:03 | XMS_ITS | Data Portability ---
Author Organization [facility] Address [address] [place] [address] Care Team Providers Care Flare Man Name Role Phone AMY DANIELS Primary Care Provider Unavailab le Assessment Encounter Date Assessment Date Assessment LastModified by Organization Details LastModified Time 11/15/2023 11/15/2023 Pap smear /WWE due with dr. liu jerome. He orders mammogram too. [email or web address] Not available 11/15/2023 15:36:03 Plan of Treatment Reminders Order Date Submit Date Provider Last Modified By Organization Details Last Modified Time Details Appointments ANY 15 2026 04:30P M RAYMUNDO Carrion Not available Not available Not available Lab CMP, serum or plasma 2023 024 [facility], [address], [place], [address], 12/16/2023 07:36:30 CBC w/ auto diff 2023 024 MEL[facility], [address], [place], [address], 12/16/2023 07:36:32 lipid panel, serum 2023 024 MELBA [facility], [address], [place], [address], 12/16/2023 07:36:28 HbA1c (hemoglob in A1c), blood 2023 024 MELBA [facility], [address], [place], [address], 12/16/2023 07:36:31 TSH + free T4, serum 2023 024 [facility], [address], [place], [address], 12/16/2023 07:36:29 Referral orthopedi c surgeon referral [email or web address] [facility], [address], [place], [address], 12/13/2023 12:25:11 Procedures None recorded. Surgeries None recorded. Imaging XR, ankle + foot 2023 024 [facility], [address], [place], [address], 11/18/2023 23:05:01 Medication Orders None recorded. Patient TargetsNo targets recorded. Patient InstructionsNo instructions recorded. Reason for Referral Orthopedic Surgeon Referral for Injury of right ankle Referring Physician: Amy Dnaiels, Internal Medicine, Encounter Date: 11/15/2023 Results Created Date Observation Date Name Description Value Unit Range Abnormal Flag Note LastModifiedBy Organization Detail LastModifiedTime 12/15/1912/16/2023 LIPID PANEL W/ CHOL/ HDL RATIO cholesterol, total 257 mg/dL 100-19 9 above high normal Not Available [facility] [address] [facility], [place], [address], 12/16/2023 07:36:28 12/15/1912/16/2023 LIPID PANEL W/ CHOL/ HDL RATIO triglyceride s 128 mg/dL 0-149 Not Available [facility] [address] [facility] [address] [facility], [place], [address], 12/16/2023 07:36:28 12/15/1912/16/2023 LIPID PANEL W/ CHOL/ HDL RATIO HDL cholesterol 64 mg/dL >39 Not Available [facility] [address] [place], [address], 12/16/2023 07:36:28 12/15/19 24 12/16/2023 LIPID PANEL W/ CHOL/ HDL RATIO VLDL cholesterol roxie 23 mg/dL 5-40 Not Available [facility] [address] [place], [address], 12/16/2023 07:36:28 12/15/19 24 12/16/2023 LIPID PANEL W/ CHOL/ HDL RATIO LDL chol calc ([facility]) 170 mg/dL 0-99 above high normal Not Available [facility] [address] [place], [address], 12/16/2023 07:36:28 12/15/19 24 12/16/2023 LIPID PANEL W/ CHOL/ HDL RATIO T. chol/HDL ratio 4.0 ratio 0.0-4. 4 T. Chol/ HDL Ratio Men Women 1/2 Avg.R isk 3.4 3.3 Avg.R isk 5.0 4.4 2X Avg.R isk 9.6 7.1 3X Avg.R isk 23.4 11.0 Not Available [facility] [address] [place], [address], 12/16/2023 07:36:28 12/15/19 24 12/16/2023 TSH+F REE T4 TSH 0.031 uIU/m L 0.450- 4.500 below low normal Not Available [facility] [address] [place], [address], 12/16/2023 07:36:29 12/15/19 24 12/16/2023 TSH+F REE T4 T4,free(dire ct) 1.33 NG/dL 0.82-1 .77 Not Available [facility] [address] [place], [address], 12/16/2023 07:36:29 12/15/19 24 12/16/2023 COMP. METAB OLIC PANEL (14) glucose 100 mg/dL 70-99 above high normal Not Available [facility] [address] [place], [address], 12/16/2023 07:36:30 12/15/19 24 12/16/2023 COMP. METAB OLIC PANEL (14) BUN 14 mg/dL 6-24 Not Available [facility] [address] [place], [address], 12/16/2023 07:36:30 12/15/1912/16/2023 COMP. METAB OLIC PANEL (14) creatinine 1.01 mg/dL 0.57-1 .00 above high normal Not Available [facility] [address] [place], [address], 12/16/2023 07:36:30 12/15/19 24 12/16/2023 COMP. METAB OLIC PANEL (14) eGFR 68 mL/mi n/1.7 3 >59 Not Available [facility] [address] [place], [address], 12/16/2023 07:36:30 12/15/19 24 12/16/2023 COMP. METAB OLIC PANEL (14) BUN/creatini ne ratio 14 9-23 Not Available [facility] [address] [place], [address], 12/16/2023 07:36:30 12/15/19 24 12/16/2023 COMP. METAB OLIC PANEL (14) sodium 137 mmol/ L 134-14 4 Not Available [facility] [address] [place], [address], 12/16/2023 07:36:30 12/15/19 24 12/16/2023 COMP. METAB OLIC PANEL (14) potassium 4.7 mmol/ L 3.5-5. 2 Not Available [facility] [address] [facility] [place], [address], 12/16/2023 07:36:30 12/15/19 24 12/16/2023 COMP. METAB OLIC PANEL (14) chloride 100 mmol/ L 96-106 Not Available [facility] [address] [facility] [place], [address], 12/16/2023 07:36:30 12/15/19 24 12/16/2023 COMP. METAB OLIC PANEL (14) carbon dioxide, total 25 mmol/ L 20-29 Not Available [facility] [address] [facility] [address] [facility], [place], [address], 12/16/2023 07:36:30 12/15/19 24 12/16/2023 COMP. METAB OLIC PANEL (14) calcium 9.8 mg/dL 8.7-10 .2 Not Available [facility] [address] [place], [address], 12/16/2023 07:36:30 12/15/19 24 12/16/2023 COMP. METAB OLIC PANEL (14) protein, total 7.1 g/dL 6.0-8. 5 Not Available [facility] [address] [place], [address], 12/16/2023 07:36:30 12/15/19 24 12/16/2023 COMP. METAB OLIC PANEL (14) albumin 4.4 g/dL 3.9-4. 9 Not Available [facility] [address] [place], [address], 12/16/2023 07:36:30 12/15/19 24 12/16/2023 COMP. METAB OLIC PANEL (14) globulin, total 2.7 g/dL 1.5-4. 5 Not Available [facility] [address] [facility], [place], [address], 12/16/2023 07:36:30 12/15/19 24 12/16/2023 COMP. METAB OLIC PANEL (14) bilirubin, total 0.2 mg/dL 0.0-1. 2 Not Available [facility] [address] [place], [address], 12/16/2023 07:36:30 12/15/19 24 12/16/2023 COMP. METAB OLIC PANEL (14) alkaline phosphatase 63 IU/L 44-121 Not Available [facility] [address] [facility], [place], [address], 12/16/2023 07:36:30 12/15/19 24 12/16/2023 COMP. METAB OLIC PANEL (14) AST (SGOT) 17 IU/L 0-40 Not Available [facility] [address] [facility], [place], [address], 12/16/2023 07:36:30 12/15/1912/16/2023 COMP. METAB OLIC PANEL (14) ALT (SGPT) 15 IU/L 0-32 Not Available [facility] [address] [place], [address], 12/16/2023 07:36:30 12/15/1912/16/2023 HEMOG LOBIN A1C hemoglobin A1C 5.9 % 4.8-5. 6 above high normal Predi abete s: 5.7 - 6.4 Diabe jennifer: >6.4 Glyce saniya contr ol for adult s with diabe jennifer: <7.0 Not Available [facility] [address] [facility], [place], [address], 12/16/2023 07:36:31 12/15/19 24 12/16/2023 CBC WITH DIFFE RENTI AL/PL ATELE T WBC 5.2 x10e3 /uL 3.4-10 .8 Not Available [facility] [address] [facility] [address] [facility], [place], [address], 12/16/2023 07:36:32 12/15/1912/16/2023 CBC WITH DIFFE RENTI AL/PL ATELE T RBC 4.56 x10e6 /uL 3.77-5 .28 Not Available [facility] [address] [facility], [place], [address], 12/16/2023 07:36:32 12/15/1912/16/2023 CBC WITH DIFFE RENTI AL/PL ATELE T hemoglobin 14.2 g/dL 11.1-1 5.9 Not Available [facility] [address] [facility], [place], [address], 12/16/2023 07:36:32 12/15/1912/16/2023 CBC WITH DIFFE RENTI AL/PL ATELE T hematocrit 43.3 % 34.0-4 6.6 Not Available [facility] [address] [facility], [place], [address], 12/16/2023 07:36:32 12/15/1912/16/2023 CBC WITH DIFFE RENTI AL/PL ATELE T MCV 95 fL 79-97 Not Available [facility] [address] [place], [address], 12/16/2023 07:36:32 12/15/1912/16/2023 CBC WITH DIFFE RENTI AL/PL ATELE T MCH 31.1 pg 26.6-3 3.0 Not Available [facility] [address] [facility], [place], [address], 12/16/2023 07:36:32 12/15/1912/16/2023 CBC WITH DIFFE RENTI AL/PL ATELE T MCHC 32.8 g/dL 31.5-3 5.7 Not Available [facility] [address] [facility], [place], [address], 12/16/2023 07:36:32 12/15/19 24 12/16/2023 CBC WITH DIFFE RENTI AL/PL ATELE T RDW 11.8 % 11.7-1 5.4 Not Available [facility] [address] [facility], [place], [address], 12/16/2023 07:36:32 12/15/1912/16/2023 CBC WITH DIFFE RENTI AL/PL ATELE T platelets 329 x10e3 /uL 150-45 0 Not Available [facility] [address] [facility], [place], [address], 12/16/2023 07:36:32 12/15/19 24 12/16/2023 CBC WITH DIFFE RENTI AL/PL ATELE T neutrophils 50 % notest ab. Not Available [facility] [address] [facility] [address] [facility], [place], [address], 12/16/2023 07:36:32 12/15/19 24 12/16/2023 CBC WITH DIFFE RENTI AL/PL ATELE T lymphs 36 % notest ab. Not Available [facility] [address] [facility] [address] [facility], [place], [address], 12/16/2023 07:36:32 12/15/19 24 12/16/2023 CBC WITH DIFFE RENTI AL/PL ATELE T monocytes 9 % notest ab. Not Available [facility] [address] [facility], [place], [address], 12/16/2023 07:36:32 12/15/19 24 12/16/2023 CBC WITH DIFFE RENTI AL/PL ATELE T eos 4 % notest ab. Not Available [facility] [address] [facility], [place], [address], 12/16/2023 07:36:32 12/15/1912/16/2023 CBC WITH DIFFE RENTI AL/PL ATELE T basos 1 % notest ab. Not Available [facility] [address] [facility], [place], [address], 12/16/2023 07:36:32 12/15/1912/16/2023 CBC WITH DIFFE RENTI AL/PL ATELE T neutrophils (absolute) 2.6 x10e3 /uL 1.4-7. 0 Not Available [facility] [address] [facility], [place], [address], 12/16/2023 07:36:32 12/15/1912/16/2023 CBC WITH DIFFE RENTI AL/PL ATELE T lymphs (absolute) 1.9 x10e3 /uL 0.7-3. 1 Not Available [facility] [address] [facility], [place], [address], 12/16/2023 07:36:32 12/15/19 24 12/16/2023 CBC WITH DIFFE RENTI AL/PL ATELE T monocytes(ab solute) 0.5 x10e3 /uL 0.1-0. 9 Not Available [facility] [address] [facility], [place], [address], 12/16/2023 07:36:32 12/15/19 24 12/16/2023 CBC WITH DIFFE RENTI AL/PL ATELE T eos (absolute) 0.2 x10e3 /uL 0.0-0. 4 Not Available [facility] [address] [facility], [place], [address], 12/16/2023 07:36:32 12/15/19 24 12/16/2023 CBC WITH DIFFE RENTI AL/PL ATELE T baso (absolute) 0.1 x10e3 /uL 0.0-0. 2 Not Available [facility] [address] [facility], [place], [address], 12/16/2023 07:36:32 12/15/19 24 12/16/2023 CBC WITH DIFFE RENTI AL/PL ATELE T immature granulocytes 0 % notest ab. Not Available [facility] [address] [facility], [place], [address], 12/16/2023 07:36:32 12/15/19 24 12/16/2023 CBC WITH DIFFE RENTI AL/PL ATELE T immature grans (abs) 0.0 x10e3 /uL 0.0-0. 1 Not Available [facility] [address] [facility] [address] [facility], [place], [address], 12/16/2023 07:36:32 11/18/19 24 11/15/2023 XR, ankle + foot No observ ation record ed. [facility] [address], [place], [address], 11/19/2023 13:54:55 01/24/2001/22/2025 MAMMO , scree sarah, digit al, bilat eral No observ ation record ed. [facility] [address], [place], [address], 01/23/2025 12:04:34 Result Notes None recorded. Problems Name Problem SNOMED Code Status Onset Date Resolution Date Notes Provider Name and Address Organization Details Recorded Time Body mass index 25-29 - overweight 950371261 Active 2023 Brigid Tran MA [facility], [place] - [facility] 4 15:00:08 Hypothyroid ism 17453678 Active 2023 RAYMUNDO Carrion Attn: Mary g,[address] [facility], [place], [address], [place] [facility] 4 17:49:04 Long-term drug therapy Active 2023 RAYMUNDO Carrion Attn: Mary danielson,[address] [facility], [place], [address], [place] [facility] 4 17:49:17 Positive screening for depression on PHQ-9 (Patient Health Questionnai re 9) 2202628979771 00 Active 2023 RAYMUNDO Carrion Attn: Accountiker g,[address] [facility], [place], [address], [place] [facility] 5 17:57:55 Hyperlipide claudio 40101819 Active 2024 RAYMUNDO Carrion Attn: Accountiker g,[address] [facility], [place], [address], [place] [facility] 5 14:49:20 Mixed anxiety and depressive disorder 536615697 Active 2024 RAYMUNDO Carrion Attn: Accountiker g,[address] [facility], [place], [address], [place] - [facility] 5 14:49:33 Overweight in adulthood with body mass index of 25 or more but less than 30 089671511 Active 2024 RAYMUNDO Carrion Attn: Accountikre g,[address] [facility], [place], [address], [place] [facility] 5 18:02:02 Problem Notes None recorded. Procedures Surgical History Date Name Laterality Status Provider Name and Address Organization Details Recorded Time section completed Brigid Tran MA [facility] 11/15/2023 14:59:33 hysterectomy completed Brigid Tran MA [facility] 11/15/2023 14:59:48 repair of stress incontinence by suprapubic sling completed Brigid Tran MA [facility] 11/15/2023 14:59:56 Imaging Results None recorded. Procedure Notes None recorded. Medical Equipment None Reported. Allergies Allergen ID Allergen Name Allergen Category Reaction Reaction Severity Criticality Documentation Date Start Date Code Code System Note Provider Name and Address Organization Details Recorded Time 208434 rosuvasta tin medicatio n itching Not available Not available 01/08/2025 20617 2 RxNorm Not Available melba - External Data Service - prod 5 14:53:29 Medications Name Sig Start Date Stop Date Status Note LastModified by Organization Details LastModified Time amoxicillin 500 mg capsule TAKE 1 CAPSULE BY MOUTH EVERY 8 HOURS UNTIL GONE 11/14 completed Not Available Not Available Not Available buspirone 5 mg tablet TAKE 1 TABLET BY MOUTH THREE TIMES DAILY 02/23 completed Not Available Not Available Not Available clindamycin HCl 300 mg capsule TAKE 1 CAPSULE BY MOUTH THREE TIMES DAILY 02/20 completed Not Available Not Available Not Available atorvastati n 10 mg tablet TAKE 1 TABLET BY MOUTH ONCE DAILY 02/23 completed Not Available Not Available Not Available ibuprofen 800 mg tablet TAKE 1 TABLET BY MOUTH EVERY 6 HOURS NEEDED FOR PAIN active prn Not Available Not Available No t Available alprazolam 1 mg tablet TAKE 1 TABLET BY MOUTH TWICE DAILY NEEDED active Not Available Not Available No t Available metronidazo le 0.75 % (37.5 mg/5 gram) vaginal gel INSERT 1 APPLICATO RFUL VAGINALLY AT BEDTIME FOR 5 DAYS 02/20 completed Not Available Not Available Not Available levothyroxi ne 100 mcg tablet Take 1 microgram by oral route for 30 days. active Not Available Not Available No t Available estradiol 1 mg tablet TAKE 1 TABLET BY MOUTH ONCE DAILY 02/23 completed Not Available Not Available Not Available estradiol 2 mg tablet Take 1 tablet every day by oral route for 90 days. active Not Available Not Available No t Available levofloxaci n 500 mg tablet TAKE 1 TABLET BY MOUTH DAILY FOR 7 DAYS 11/14 completed Not Available Not Available Not Available bupropion HCl XL 150 mg 24 hr tablet, extended release TAKE 1 TABLET BY MOUTH ONCE DAILY IN THE MORNING 02/23 completed Not Available Not Available Not Available nitrofurant oin monohydrate /macrocryst als 100 mg capsule TAKE 1 CAPSULE BY MOUTH TWICE DAILY FOR 5 DAYS 11/14 completed Not Available Not Available Not Available duloxetine 30 mg capsule,del ayed release TAKE 1 CAPSULE BY MOUTH ONCE DAILY AT BEDTIME active Not Available Not Available No t Available duloxetine 60 mg capsule,del ayed release TAKE 1 CAPSULE BY MOUTH ONCE DAILY AT BEDTIME 02/23 completed Not Available Not Available Not Available Vitals Date Recorded Systolic And Diastolic Provider Name and Address Organization Details Last Updated DateTime 11/15/2023 120/80 mm[Hg] RAYMUNDO Carrion Attn: Accounting,[address] [facility], [place], [address], [facility] 11/15/2023 15:36:29 Date Recorded Body weight Respiratory rate Body mass index (BMI) Body height Oxygen saturation Heart rate Systolic And Diastolic Provider Name and Address Organization Details Last Updated DateTime 4 56324.5 1 g 18 /min 28.9 kg/m2 155.58 cm 99 % 86 /min 108/68 mm[Hg] Brigid Tran MA [facility] 4 15:03:47 Date Recorded Body height Body mass index (BMI) Body weight Respiratory rate Oxygen saturation Heart rate Systolic And Diastolic Provider Name and Address Organization Details Last Updated DateTime 5 155.58 cm 29.8 kg/m2 77312.4 7 g 18 /min 99 % 82 /min 118/72 mm[Hg] Brigid Tran MA [facility] 5 17:45:12 Social History Question Answer Notes LastModified by Organizat ion Details LastModified Time Tobacco Smoking Status Former Smoker quit 10-15 years ago Brigid Tran MA null, [facility] 11/15/2023 14:58:49 Do You Have An Advance Directive? No Information not available 11/15/2023 Are You Blind Or Do You Have Difficulty Seeing? No Glasses/ Troubles Hearing Information not available 11/15/2023 What Is Your Level Of Caffeine Consumption? Occasional Soda A Week Information not available 11/15/2023 In The 14 Days Before Symptom Onset, Have You Had Close Contact With A Laboratory-confi rmed COVID-19 While That Case Was Ill? No Information not available 11/15/2023 In The 14 Days Before Symptom Onset, Have You Had Close Contact With A Person Who Is Under Investigation For COVID-19 While That Person Was Ill? No Information not available 11/15/2023 Have You Been To An Area Known To Be High Risk For COVID-19? No Information not available 11/15/2023 Are You Deaf Or Do You Have Serious Difficulty Hearing? No Information not available 11/15/2023 What Type Of Diet Are You Following? REGULAR Information not available 11/15/2023 Are There Any Guns Present In Your Home? No Information not available 11/15/2023 What Was The Date Of Your Most Recent Tobacco Screening? 02/23/2025 Information not available 02/23/2025 What Is Your Current Pack Years? 20-29packyear s Information not available 11/15/2023 What Is Your Relationship Status? Information not available 11/15/2023 Do You Use Your Seat Belt Or Car Seat Routinely? Yes Information not available 11/15/2023 Do You Have Smoke And Carbon Monoxide Detectors In Your Home? Yes Information not available 11/15/2023 How Much Tobacco Do You Smoke? No Information not available 11/15/2023 Do You Use Sunscreen Routinely? No Information not available 11/15/2023 Has Tobacco Cessation Counseling Been Provided? No Information not available 11/15/2023 Sex: Female Functional Status Question Answer Note LastModified by Organizat ion Details LastModified Time Do you use any illicit or recreational drugs? No Information not available 11/15/2023 Do you or have you ever used any other forms of tobacco or nicotine? No Information not available 11/15/2023 What is your level of alcohol consumption? None Information not available 11/15/2023 Are you currently employed? Yes Information not available 11/15/2023 Are you able to care for yourself independently? Yes Information not available 11/15/2023 What is your exercise level? Occasional Information not available 11/15/2023 Mental Status Question Answer Note LastModified by Organization D etails LastModified Time Do you feel stressed (tense, restless, nervous, or anxious, or unable to sleep at night)? [id number] Information not available 11/15/2023 Family History Relationship Description Onset Age of this Age Resolved Age Notes LastModified by Organization Details LastModified Time Mother Diabetes mellitus mom has passed from this 3 years ago tcarterma Not available 02/23/2025 17:42:26 Sister Disorder of thyroid gland tcarterma Not available 2023 15:44:23 Medical History Condition Response Coronary Artery Disease N Other N Atrial Fibrillation N High Blood Pressure N Thyroid Problems Y Kidney or Bladder Problems N Depression Y COPD N Blood Clots N GI Problems N Have you had a mammogram in the last yea r? N Skin Problems Y Anemia N Heart Attack ([place]) N Diabetes N Anxiety Disorder Y Muscle, Joint, or Bone Problems N Seizures/Epilepsy N Have you had a colonoscopy in the last 1 0 years? N Acid Reflux (GERD) N Cancer N Stroke Y Allergies N Asthma Y Have you had a PSA blood test in the las t year? N High Cholesterol Y Hepatitis N Liver Disease N Headaches N Osteoporosis N Heart Failure N Gynecological History Statement/Question Response Menses Monthly N Current Control Method Other Obstetrics History GPAL:G 3 P 2 0 0 2 Type Value Full Term 2 Induced 0 Spontaneous 0 Premature 0 Living 2 Total 3 Immunizations Vaccine Type Date Status Note Provider Nam e and Address Organization Details Recorded Time COVID-19, mRNA, LNP-S, PF, 30 mcg/0.3 mL dose 11/21/2020 completed Not Available [facility] 17:23:22 COVID-19, mRNA, LNP-S, PF, 30 mcg/0.3 mL dose 02/27/2021 completed Not Available [facility] 17:23:22 Hep B, adult 04/14/2024 completed Not Available [facility] 02/23/2025 17:23:22 Hep B, adult 05/13/2024 completed Not Available [facility] 02/23/2025 17:23:22 Hep B, adult 10/09/2024 completed Not Available [facility] 02/23/2025 17:23:22 Past Encounters Encounter ID Performer Location Encounter Start Date Encounter Closed Date Diagnosis/Indication Diagnosis SNOMED-CT Code Diagnosis ICD10 Code Diagnosis IMO Codes Diagnosis Note [id number] Guillermo Boyd MD [facility] Must See [place] [address] [place] [address] 11/15/2023 14:47:18 11/15/2023 15:43:44 Body mass index 25-29 - overweight 746674293 Z68.28 BMI is 28.9 Injury of right ankle 11 96504976 1563471 S99.911A Refer for right ankle and foot x-ray and refer to Orthopedic s Adult heal th examination 486474448 Z00.01 Annual wellness exam complete Hypothyroidism 88074522 E03.9 Patient is due for routine thyroid labs, she has been on levothyrox ine 100 mcg daily Cholesterol screening 27 8581290 Z13.220 Fasting lipid panel due Diabetes m ellitus screening 578724355 Z13.1 Annual diabetes screening ordered Long-term drug therapy 890878553 Z79.899 Routine CBC and CMP due Positive s creening for depression on PHQ-9 (Patient Health Questionnaire 9) Z13.31 Patient scored a 20 on her screening today and she is currently taking BuSpar from Psychiatry . She does feel stable but still has symptoms. [id number] Guillermo Boyd MD [facility] Must See [place] [address] [place] [address] 02/23/2025 17:19:34 02/23/2025 18:07:27 Adult health examination 965481913 Z00.01 Annual wellness exam complete Hypothyroidism 96017783 E03.9 Labs are up-to-date , stable, she has been on levothyrox ine 100 mcg daily Long-term drug therapy 480926029 Z79.899 Hyperlipidemia 83068370 E78.5 [id number] Labs are in great range on atorvastat in 10 mg daily Mixed anxi ety and depressive disorder 547485603 F41.8 184303 Stable on medication s, managed by Psychiatry Positive s creening for depression on PHQ-9 (Patient Health Questionnaire 9) 2008363266 78974 Z13.31 [id number] Patient scored a 15 on her screening today and she is currently taking BuSpar from Psychiatry . She does feel stable but still has symptoms. Overweight in adulthood with body mass index of 25 or more but less than 30 194624860 E66.3 Z68.29 8765783982 BMI is 28.9 Lower urin angela tract symptoms 627281307 R39.9 [id number] Screening for malignant neoplasm of colon [id number] Z12.11 650458 Health Concerns Section Related Observation LastModified by Organization Detai ls LastModified Time None Recorded Concern Status LastModified by Organization Details LastModified Time None Recorded Advance Directives Directive N: Payers Insurance Date Sequence Insurance Name Policy Number Policy Henao Covered Member ID Henao Member ID Guarantor Name 02/23/2025 1 [facility] [employer] ([facility]) [id number] Shavon Frank [id number] Shavon Frank 02/23/2025 1 R [id number] Shavon Frank [id number] Shavon Frank Notes Date Note Type Note Provider Name and Address Organization Details Recorded Time 4 text/htm l ThyroidReported by PatientPatient is on thyroid supplement and overdue for labs Patient this summer had a sprain of her right ankle that was never evaluated or x-rayed and she continues to have some limited range of motion and chronic daily pain. RAYMUNDO Carrion Attn: Accounting,[address] [place], [address], [facility] 12/02/2023 17:50:12 5 text/htm l HyperlipidemiaReported by PatientPatient is on atorvastatin 10 mg daily Anxiety/DepressionReported by PatientPatient is following with Psychiatry and on duloxetine 30 mg daily BuSpar 5 mg 3 times a day Wellbutrin XL 150 mg daily and alprazolam 1 mg twice daily (given by gyne) as needed ThyroidReported by PatientPatient is on thyroid supplement and overdue for labs Not Available Not Available Not Available OBGyn Episode No OBEpisode recorded.
[2025-02-24 12:51] LABS: Add Urine Microscopic? YES; Appearance Urine Clear (Clear); Glucose Urine UA Negative (Negative); Leukocyte Esterase Ur 3+ LEU/UL (Negative); Need Manual Microscopic Reviewed; Nitrate Urine Negative (Negative); Non Pathogenic Casts 0-2; Specific Grav Ur 1.024 (1.001-1.035)
== END 2025-02-24 11:47 | disposition home or self-care (01) ==
LOC: ANHLAB 11:49
PROVIDERS: PCP Physician Assistant; Visit Provider Physician Assistant
DX: R39.9 Unspecified symptoms and signs involving the genitourinary system (principal)
CPT/HCPCS: 81001; 87086